=== PATIENT | male | born 1990 | race African-American/Black ===

== ENCOUNTER 2020-11-23 14:33 | Emergency (ER) | payer OTHER, SELFPAY ==
[2020-11-23 15:05] VITALS: BP 138/72; PULSE 82; RESP 18; TEMP 36.7; O2SAT 97; BMI 19.1
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
--- NOTE | 2020-11-23 17:04 | PC.NURSE ---
Pt seen by care team. Awaiting disposition at this time.
== END 2020-11-23 17:10 | disposition home or self-care (01) ==
PROVIDERS: Emergency Provider Emergency Medicine Emergency Medical Services; PCP Internal Medicine
DX: F32.9 Major depressive disorder, single episode, unspecified (principal)
CPT/HCPCS: 99282

== ENCOUNTER 2022-11-04 15:17 | Emergency (ER) | payer MEDICAID, SELFPAY ==
[2022-11-04 15:21] VITALS: BP 141/87; PULSE 98; RESP 17; TEMP 35.8; O2SAT 97; BMI 19.6
--- NOTE | 2022-11-04 15:22 | ED_ITS ---
HPI - General Adult General Chief complaint: Upper Respiratory Symptoms Stated complaint: strep throat? Time Seen by Provider: 11/04/22 15:33 Source: patient Mode of arrival: ambulatory Limitations: no limitations History of Present Illness HPI narrative: 32-year-old male presents to the ER for evaluation of sore throat for the last couple of days. He feels like he might have strep. He has a slight dry cough bu t Denies other symptoms like runny nose, nasal congestion, fever, chills, sinus pressure or pain. No known sick contacts. No history of seasonal allergies. Difficulty swallowing. He is able to eat and drink normally. complaint: Sore throat Onset (ago): day(s) (2) Location: mouth and neck Radiation: non-radiation Severity: moderate Quality: stabbing and sharp Pain Consistency: intermittent Relieving factors: medication Exacerbating factors: eating Treatments prior to arrival: none Related Data Allergies Allergy/AdvReac Type Severity Reaction Status Date / Time No Known Allergies Allergy Unverified 02/27/20 18:58 [No Known Allergies*] Review of Systems Review of Systems: Yes all other systems are reviewed and are negative [facility] Social History Social History Advance Directives: No Advance Directives Information Provided: No Physical Exam ED Vital Signs: Vital Signs - 24 hr 11/04/22 15:21 Temperature 96.5 F L Pulse Rate 98 Respiratory Rate 17 Blood Pressure 141/87 H Pulse Oximetry 97 Oxygen Delivery Method Room Air BMI result Body Mass Index 19.6 Appearance: Alert. Oriented X3. No acute distress. Head: normocephalic, atraumatic. Eyes: Pupils equal, round and reactive to light. ENT: Pharynx with mild generalized posterior pharyngeal erythema.. mild tonsillar swelling without exudate. uvula midline. Normal voice, handling secretions normally. Normal tympanic membranes bilaterally. Neck: Normal inspection. Neck supple. No cervical lymphadenopathy. CVS: Normal heart rate and rhythm. Pulses normal. Respiratory: No respiratory distress. Breath sounds normal. Skin: Skin warm and dry. Normal skin color. Normal skin turgor. No rashes. Extremities: No lower extremity edema. No joint swelling. Neuro/psych: Oriented X 3. Grossly normal, nonfocal. CN II-XII intact. Normal speech and cognition. Course Course Course Narrative: RME performed by Cheri Villagomez PA-C. Patient is a 32 year old assigned male at presenting to the emergency department with a sore throat. Swabs ordered. Patient placed back in the waiting room pending room availability and results. Medical Decision Making Medical Decision Making [facility] Narrative: 32-year-old male presents to the ER for evaluation of sore throat for the last 2 days. No other URI symptoms. His tonsils are not significantly swollen and he has no exudates. Uvula is midline. His airway is patent and he is eating and drinking normally. His lungs are clear. His vital signs are normal. He was tested for COVID, flu, strep and all were negative. Most likely viral etiol ogy. We discussed diagnosis, treatment and supportive care. He is stable for discharge home. Patient agrees with plan and all questions were answered. Differential Diagnosis Differential Diagnoses: The differential diagnosis associated with the presentation includes strep, covid, flu, rsv, other viral syndrome, bronchitis, pneumonia, no evidence of peritonsillar abcsess or retropharyngeal abscess Lab Data [facility] Lab Attestation statement: I reviewed the patient's lab results. Labs: Lab Results 11/04/22 11/04/22 11/04/22 Range/Units 15:31 15:31 15:31 COVID-19 (WENDY) Negative (Negative) COVID-19 Clin Com See Note Influenza Type A (YURIDIA) Negative (Negative) Influenza Type B ([facility]URIDIA) Negative (Negative) Influenza A & B Note See Note S. pyogenes GrpA [facility] Negative (Negative) Prescription Management I considered prescription management with: Pain Medication and Antibiotic Critical Care Time Critical Care Time Critical Care Time: No Discharge Plan Discharge Clinical Impression: Pharyngitis Patient Disposition: Home, Self-Care Instructions: Pharyngitis (ED) Additional Instructions: You tested negative for strep throat, COVID, influenza today. Your symptoms most likely due to another virus. Treatment is supportive care. Make sure drinking plenty of water and fluids. Take Motrin and Tylenol as needed for pain. Recommend gargling with warm salt water 3 times per day. Recommend [id number] Chloraseptic spray and Cepacol lozenges for sore throat. If you develop new or worsening symptoms call 911 or come back to the ER for further evaluation. Stand Alone Forms: Work/School Release Interventions: ED Discharge Assessment Last Done: 11/04/22 16:31 Discharge Date/Time: 11/04/22 16:31
[2022-11-04 15:57] LABS: COVID-19 Test Negative (Negative); IDNOW Serial# 6674DD1D; IDNOW Serial# 9DB6401D
[2022-11-04 15:58] LABS: IDNOW Serial# BCCEAD1C; Influenza A Negative (Negative); Influenza B2 Negative (Negative); Strep A Nucleic Acid Negative (Negative)
== END 2022-11-04 16:31 | disposition home or self-care (01) ==
PROVIDERS: Physician Assistant Medical; Emergency Provider Emergency Medicine
DX: J02.9 Acute pharyngitis, unspecified (principal); Z20.822 Contact with and (suspected) exposure to COVID-19
CPT/HCPCS: 87502; 87635; 87651; 99282; 99283